=== PATIENT | female | born 1975 | race Caucasian/White ===

== ENCOUNTER 2018-01-11 17:46 | Inpatient (IN) | payer OTHER ==
[~2018-01-11] VITALS: Ht 154.9 cm; Wt 58.5 kg
== END 2018-01-19 12:47 | DRG 743 ==
LOC: ER 17:46 → SURG-SUITE 01-12 07:47 → SEC-K 01-12 07:47 → SURG-SUITE 01-12 10:49
PROVIDERS: Obstetrics & Gynecology
PROC: 0DNE0ZZ Release Large Intestine, Open Approach (ICD-10-PCS; 2018-01-12)
PROC: 0U900ZX Drainage of Right Ovary, Open Approach, Diagnostic (ICD-10-PCS; 2018-01-12)
PROC: 0UB00ZZ Excision of Right Ovary, Open Approach (ICD-10-PCS; principal; 2018-01-12 09:00)
PROC: B54DZZZ Ultrasonography of Bilateral Lower Extremity Veins (ICD-10-PCS; 2018-01-15)
DX: N70.03 Acute salpingitis and oophoritis (principal); N73.6 Female pelvic peritoneal adhesions (postinfective); B95.3 Streptococcus pneumoniae as the cause of diseases classified elsewhere

== ENCOUNTER 2018-02-06 09:38 | Outpatient (CLI) | payer OTHER | END 2018-02-06 09:57 | disposition home or self-care (01) | LOC: TOM 09:38 | DX: R10.32 Left lower quadrant pain (principal); R10.33 Periumbilical pain; N83.201 Unspecified ovarian cyst, right side ==

== ENCOUNTER 2018-04-28 11:10 | Day surgery (SDC) | payer OTHER | END 2018-04-28 16:30 | disposition home or self-care (01) | LOC: AMB-ENDOS 11:10 | DX: K64.8 Other hemorrhoids (principal) ==